=== PATIENT | female | born 1965 | race Caucasian/White ===

== ENCOUNTER → 2017-04-13 20:47 | Outpatient (CLI) | payer OTHER | END | disposition home or self-care (01) | LOC: D.LABREF 20:47 | DX: M25.80 Other specified joint disorders, unspecified joint (principal) ==

== ENCOUNTER → 2017-05-22 05:09 | Day surgery (SDC) | payer OTHER ==
[2017-05-18 10:34] LABS: HEMATOCRIT 40.8 % (36.0-48.0); HEMOGLOBIN 13.3 g/dL (12-16); MCH 29.9 pg (26.0-34.0); MCHC 32.6 g/dL (31.0-37.0); MCV 91.7 fL (80.0-100.0); RBC 4.45 10x6/uL (4.00-5.40); RDW 12.5 % (11.5-14.5); WBC 6.2 10x3/uL (4.8-10.8)
[~2017-05-22 05:09] MED LIST: HYDROCODONE-APA1 TAB PO
[2017-05-22 06:45] VITALS: BP 95/59; BMI 28.1
--- NOTE | 2017-05-22 10:45 | NUR ---
C/O NAUSEA, ZOFRAN 4MG SLOW IVP GIVEN. STATES WILL TAKE PAIN PILL WHEN NAUSEA IS GONE.
--- NOTE | 2017-05-22 12:04 | NUR ---
NORCO 10MG PO FOR C/O PAIN. IV REMOVED INTACT. DISCHARGE INSTRUCTIONS AND RX GIVEN, VOICED UNDERSTANDING.
--- NOTE | 2017-05-22 12:15 | NUR ---
DRESSED AND READY FOR DISCHARGE. HAS CRUTCHES IN CAR AND STATES KNOWS HOW TO USE THEM, HAS USED THEM BEFORE.
--- NOTE | 2017-05-22 14:44 | OP ---
PATIENT NAME: NARA BROWN MEDICAL RECORD: [id number] :63 LOCATION:[facility] ADMISSION DATE: SURGEON: LILLY MONTOYA MD DATE OF OPERATION: 05/22/2017 PREOPERATIVE DIAGNOSIS: Medial meniscus tear of the right knee. POSTOPERATIVE DIAGNOSIS: Medial meniscus tear of the right knee. PROCEDURE: Arthroscopic subtotal medial meniscectomy of the right knee. SURGEON: Lilly Montoya MD ANESTHESIA: General. INTRAOPERATIVE COMPLICATIONS: None. SUMMARY OF PATHOLOGIC FINDINGS: The patient had a very complex tear of the posterior horn of medial meniscus, horizontal cleavage plane with tears in each inferior and superior flap. 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 OPERATIVE SUMMARY IN DETAIL: After obtaining the appropriate preoperative orthopedic surgery consents as well as anesthetic consultation, evaluation and clearance, the patient was brought to the operative suite and placed in the operating table in supine position. After adequate general laryngeal mask airway was administered, tourniquet was placed about the proximal aspect of the right lower extremity. Right lower extremity was then prepped and draped in routine sterile fashion. The leg was elevated and exsanguinated, tourniquet inflated to 350 mmHg. Routine inferolateral portal was established followed by superior medial portal and inferior medial portal. Diagnostic arthroscopy revealed the above findings. While the patellofemoral compartment and the lateral compartment were pristine, the findings as described above were seen in the medial compartment. A combination of meniscotome and arthroscopic resector were utilized to do a near subtotal medial meniscectomy. All unstable portions of meniscus were removed. Having completed this, the knee was insufflated with 30 cc of 0.25% Marcaine and 80 mg of Depo-Medrol. Arthroscopy portals were closed in routine interrupted fashion using 4-0 Prolene. Sterile dressings were applied. Tourniquet was deflated. The patient was awakened, taken to the recovery room in stable condition. All final needle and sponge counts were correct. TRANSINT:[id number] Voice Confirmation ID: [id number] DOCUMENT ID: [id number] LILLY MONTOYA MD at 1444 CC: [id number] DICTATION DATE: 05/22/17 0954 APPLIANCE PAINTER AND REFINISHER: 05/22/17 1130 REG [facility] [address] [address]
== END | disposition home or self-care (01) ==
LOC: D.OPS 05:09
PROVIDERS: Anesthesiology
DX: S83.241A Other tear of medial meniscus, current injury, right knee, initial encounter (principal); F17.200 Nicotine dependence, unspecified, uncomplicated; J44.9 Chronic obstructive pulmonary disease, unspecified; Z01.812 Encounter for preprocedural laboratory examination

== ENCOUNTER 2018-10-15 11:32 | Inpatient (IN) | payer OTHER ==
[~2018-10-15] VITALS: Ht 175.3 cm; Wt 88.2 kg
[2018-10-24 10:23] LABS: APPEARANCE CLOUDY (CLEAR); BILIRUBIN NEGATIVE (NEGATIVE); COLOR YELLOW (YELLOW); GLUCOSE NEGATIVE (NEGATIVE); KETONE NEGATIVE (NEGATIVE); NITRITE POSITIVE (NEGATIVE); PROTEIN NEGATIVE (NEGATIVE); SPECIFIC GRAVITY 1.015 (1.005-1.020); UROBILINOGEN NORMAL (NORMAL); WHITE CELLS - URINE 0-5 /hpf (0-5)
[2018-10-24 10:24] LABS: BACTERIA MANY /hpf (NONE SEEN); EPITHELIAL CELLS 0-5 /hpf (0-5); MUCUS <1+ /lpf (NONE SEEN); RED CELLS - URINE 0-5 /hpf (0-5)
[2018-10-24 11:48] LABS: CALC OSMOLALITY 282 mosm/kg (275-300); CALCIUM 8.8 mg/dL (8.5-10.1); CARBON DIOXIDE 26.5 mmol/L (21.0-32.0); CHLORIDE - SERUM 106 mmol/L (98-107); CREATININE - SERUM 0.6 mg/dL (0.6-1.3); GLUCOSE 91 mg/dL (74-106); SODIUM 142 mmol/L (136-145); UREA NITROGEN 13 mg/dL (7-18); eGFR NON AFRICAN AMERICAN > 90 mL/min (90-120)
[2018-10-24 12:01] LABS: BASOPHILS 0.8 % (0-2); EOSINOPHILS 2.6 % (0-7); HEMATOCRIT 41.2 % (36.0-48.0); HEMOGLOBIN 13.5 g/dL (12-16); IMMATURE GRANULOCYTES 0.2 % (0-5); LYMPHOCYTES 36.9 % (15-50); MCHC 32.8 g/dL (31.0-37.0); MCV 88.4 fL (80.0-100.0); MEAN PLATELET VOLUME 10.3 fL (7.4-10.4); MONOCYTES 5.6 % (2-11); NEUTROPHILS 53.9 % (40-80); RBC 4.66 10x6/uL (4.00-5.40); RDW 12.9 % (11.5-14.5); WBC 6.6 10x3/uL (4.8-10.8)
[2018-10-24 12:04] LABS: APTT 29.2 SECONDS (22.8-39.4); PLATELET COUNT 246 10x3/uL (130-400); PROTIME 12.7 SECONDS (11.6-15.0)
[2018-10-30] VITALS (11 sets, daily range): BP systolic 100–127; BP diastolic 57–82; BMI 28.8
--- NOTE | 2018-10-30 16:58 | NUR ---
PATIENT NOTED TO HAVING A VERY SMALL, ABOUT SIZE OF PEN HEAD, SCAB AREA ON RIGHT KNEE, JUHI.
--- NOTE | 2018-10-30 17:05 | NUR ---
BLOCK ON RIGHT KNEE DONE OUT IN HOLDING AREA BY MIGUEL VIDES CRNA.
--- NOTE | 2018-10-30 19:31 | NUR ---
ANESTHESIA AT BEDSIDE. REBLOCKED RLE. BENJAMIN LAGUNAS CRNA PERFORMED BLOCK. WILL CONTINUE TO MONITOR.
[2018-10-31 01:33] VITALS: BP 95/60
[2018-10-31 04:34] VITALS: Ht 175.3 cm; Wt 88.2 kg
[2018-10-31 04:48] VITALS: BP 118/60
[2018-10-31 05:15] LABS: HEMOGLOBIN 12.5 g/dL (12-16); MCH 29.2 pg (26.0-34.0); MCHC 32.9 g/dL (31.0-37.0); MCV 88.8 fL (80.0-100.0); MEAN PLATELET VOLUME 10.1 fL (7.4-10.4); RBC 4.28 10x6/uL (4.00-5.40); RDW 12.6 % (11.5-14.5); WBC 10.6 10x3/uL (4.8-10.8)
--- NOTE | 2018-10-31 07:04 | OP ---
PATIENT NAME: NARA EISENBERG MEDICAL RECORD: [id number] :63 LOCATION:[id number] ADMISSION DATE:10/30/18 SURGEON: ALFRED KELLY DO DATE OF OPERATION: 10/30/2018 PROCEDURE PERFORMED: Right total knee arthroplasty. PREOPERATIVE DIAGNOSIS: Right knee osteoarthritis. POSTOPERATIVE DIAGNOSIS: Right knee osteoarthritis. INDICATIONS: Ms. Eisenberg is a 52-year-old female who has had a knee scope on the right knee before. She has had several injections in the past and has tried everything nonoperative for her right knee pain and she is ready to have something done. She was tired of dealing with the pain and it is affecting her activities of daily living. I informed her of the risks and benefits of the procedure including infection, bleeding, damage to nerve or vessels, need for further surgery, loosening of hardware, fracture, blood clots, and even . She is aware of those risks and signed the consent. SURGEON: Alfred Kelly DO DESCRIPTION OF PROCEDURE: The patient was taken to the operative suite after given a block by anesthesia in the preoperative area, given Ancef and gentamicin preoperatively. The timeout was performed, everyone was in agreeance with the correct side, site, patient, and procedure. The right knee had been prepped and draped in sterile fashion. An incision was marked out and then Ioban was placed over the knee. I was assisted by Trent Almendarez, advanced nurse practitioner. He assisted me with holding retractors and closing, this could not have been done without his assistance. Once the incision was marked out, a #10 blade scalpel was used to go down to the capsule. Any bleeding was coagulated with the Aquamantys at that time and throughout the procedure. A fresh 10 blade was then used through a medial parapatellar approach through the capsule and then the part of the fat pad was removed. The patella was everted and milled down. A 6.2 mm to fit the prosthesis. The knee was then flexed up and distal femur was entered with a drill into the femoral canal, the distal femur guide was then put on and the distal femur was cut. Once this femur was cut, the tibia was exposed and it was cut as well. The tibial cut was then removed and knee was brought in to an extension and a lamina associate professor of library science was used to spread the knee. The menisci were removed from medial and lateral. Bleeding was coagulated at that time with Aquamantys. The knee was then flexed up. The femur was measured to be 62.5 and 4-in-1 cutting block was then put on and an kumar wing was used to ensure that we would not notch and the 4-in-1 cutting block was used to cut the distal femur. The trial was then put into place and was poly put on a tibial tray, floated in and then ranged. The rotation was then marked. The patella was then drilled and once it was drilled the lug holes for the femur were drilled. The tibia was then exposed and sized to be 71. This was punched and drilled and then extra holes were put in the tibial plateau with proximal tibia to accommodate the cement. The cement was then mixed and put on the implant of the tibia and into the tibia, impacted into place. Excess cement was removed. The femur was then press fit on and impacted into place and the 12 poly was put in between the tibia and the femur, brought to extension and the patella was cemented on a 31 patella and held into place. Excess cement was removed from that. As the cement dried, the knee was thoroughly irrigated. We then sized up to a 16 poly. This fit well and had good stability in extension OPERATIVE REPORT [id number] NARA EISENBERG and flexion, both varus and valgus, and the anterior stabilized 16 E-Poly bearing was put in and locked into place with a locking mechanism. This was then ranged again and felt very solid. Inside the capsule was placed, Surgicel beads and vancomycin, tobramycin powder and then the knee capsule was closed with #2 Ethibond in fujcne-jf-eoema fashion. This was then irrigated and then more the tobramycin and vancomycin powder was put on top of the capsule and the knee was closed with a 2-0 Vicryl in an interrupted fashion. ZipLine was placed on the knee. Adaptic, 4 x 4s, ABD, Webril and Jason wrap and a CLYDE hose stocking was placed up to the knee. The patient was awakened and taken to recovery in stable condition. Blood loss was approximately 200 mL. COMPLICATIONS: None. TRANSINT:[id number] Voice Confirmation ID: [id number] DOCUMENT ID: [id number] ALFRED KELLY DO at 0704 CC: [id number] DICTATION DATE: 10/30/181813 MYCOLOGY TEACHER: 10/31/18 0137 ADM IN [facility] [address] [place] [address]
--- NOTE | 2018-10-31 08:00 | NUR ---
PATIENT ADMITTED FOLLOWING RIGHT TOTAL KNEE 10/30. CPM REMOVED, DRESSING TO RIGHT KNEE C/D/I, PATIENT ABLE FEEL TOUCH TO TOES AND WIGGLE TOES, CAP REFILL WNL, PAIN CONTROLLED AT THIS TIME. CL IN REACH
[2018-10-31 09:07] VITALS: BP 118/57
--- NOTE | 2018-10-31 11:01 | NUR ---
ADDITIONAL OXYCODONE GIVEN TO EQUAL 10 MG DUE TO PAIN INCREASED FOLLOWING FIRST 5MG
[2018-10-31 12:30] LABS: APPEARANCE HAZY (CLEAR); COLOR YELLOW (YELLOW)
[2018-10-31 12:32] LABS: AMORPHOUS SEDIMENT <1+ /lpf (NONE SEEN); BACTERIA MODERATE /hpf (NONE SEEN); BILIRUBIN NEGATIVE (NEGATIVE); EPITHELIAL CELLS RARE /hpf (0-5); GLUCOSE NEGATIVE (NEGATIVE); KETONE NEGATIVE (NEGATIVE); MUCUS <1+ /lpf (NONE SEEN); NITRITE POSITIVE (NEGATIVE); PROTEIN NEGATIVE (NEGATIVE); UROBILINOGEN NORMAL (NORMAL)
--- NOTE | 2018-10-31 13:46 | NUR ---
PT REQUESTED PAIN MEDICATION, ADMINISTERED PRN PAIN MEDICATION PER MAR
[2018-10-31 13:53] VITALS: BP 107/49
[2018-10-31 17:07] VITALS: BP 140/81
--- NOTE | 2018-10-31 17:42 | NUR ---
URINE TO BEDSIDE DAVILA DRAINAGE SYSTEM YELLOW WITH SEDIMENT WITH BLOOD TINGED URINE CLEARING
--- NOTE | 2018-10-31 20:20 | NUR ---
PT RESTING IN BED. ALERT AND ORIENTED. NO SIGNS OF DISTRESS. BREATHING EVEN AND UNLABORED. PT STATES NO PROBLEMS AT THIS TIME. IV SITE LT FA DRESSING CLEAN DRY AND INTACT. NO SIGNS OF INFECTION. SKIN CLEAN DRY AND ITNACT. BOWEL SOUNDS ACITVE. RT KNEE DRESSING CLEAN DRY AND INTACT. CLYDE HOSE, SCDS, AND PLEXI PULSE ON. WILL CONTINUE PLAN OF CARE. CALL LIGHT IN REACH. BED LOWERED AND LOCKED. BED RAILS UP X2.
[2018-10-31 21:47] VITALS: BP 110/58
--- NOTE | 2018-11-01 03:34 | NUR ---
I have reviewed this patient and I concur with the Shift Assessment completed by the Licensed Practical Nurse today this shift.
[2018-11-01 04:37] VITALS: BP 103/50
[2018-11-01 05:25] LABS: BASOPHILS 0.6 % (0-2); EOSINOPHILS 1.3 % (0-7); HEMATOCRIT 33.2 % (36.0-48.0); HEMOGLOBIN 10.6 g/dL (12-16); IMMATURE GRANULOCYTES 0.1 % (0-5); LYMPHOCYTES 39.6 % (15-50); MCH 28.5 pg (26.0-34.0); MCHC 31.9 g/dL (31.0-37.0); MCV 89.2 fL (80.0-100.0); MEAN PLATELET VOLUME 10.2 fL (7.4-10.4); MONOCYTES 7.2 % (2-11); NEUTROPHILS 51.2 % (40-80); PLATELET COUNT 186 10x3/uL (130-400); RBC 3.72 10x6/uL (4.00-5.40); RDW 12.9 % (11.5-14.5)
[2018-11-01 05:33] LABS: WBC 6.9 10x3/uL (4.8-10.8)
[2018-11-01 05:47] LABS: CALC OSMOLALITY 280 mosm/kg (275-300); CARBON DIOXIDE 27.5 mmol/L (21.0-32.0); CHLORIDE - SERUM 106 mmol/L (98-107); CREATININE - SERUM 0.7 mg/dL (0.6-1.3); GLUCOSE 106 mg/dL (74-106); POTASSIUM - SERUM 3.8 mmol/L (3.5-5.1); SODIUM 141 mmol/L (136-145); UREA NITROGEN 12 mg/dL (7-18); eGFR NON AFRICAN AMERICAN > 90 mL/min (90-120)
[2018-11-01] MEDS ORDERED: OXYCODONE HCL5 M1 PO (07:13)
[2018-11-01] MEDS ORDERED: ELIQUIS2.5 MG PO (07:13)
[2018-11-01] MEDS ORDERED: VISTARIL50 MG PO (07:14)
[2018-11-01] MEDS ORDERED: MACROBID100 MG PO (07:14)
--- NOTE | 2018-11-01 07:30 | NUR ---
PATIENT POST OP DAY 2 FOLLOWING TOTAL RIGHT KNEE REPLACEMENT. DRESSING C/D/I. CPM IN PLACE AT THIS TIME. DANNIE DENIES NEEDS, CL IN REACH
[2018-11-01 10:39] VITALS: BP 113/40
--- NOTE | 2018-11-01 12:44 | MORECARE ---
CASE MANAGEMENT DISCHARGE SUMMARY PATIENT: NARA WILSON UNIT: [id number] ADM DATE: 10/30/18 AGE: 52 : 63 SEX: F ROOM/BED: D.2214 AUTHOR: LIZBET,DOC PHYSICIAN: REFERRING PHYSICIAN: LASHAY KELLY DO DATE OF SERVICE: 11/01/18 Discharge Plan Patient Name: NARA WILSON Facility: [facility]:[place] : 1965 Planned Disposition: Home Anticipated Discharge Date: Discharge Date: Expected LOS: Initial Reviewer: [email or web address] Initial Review Date: 10/30/2018 Generated: 11/01/18 1:44 pm Comments DCP- Discharge Planning Updated by [email or web address]: Moni Liang on 11/01/18 11:[address] Patient Name: NARA WILSON Admission Status: Elective Accout number: [id number] Admission Date: 10-30-2018 : 1965 Admission Diagnosis: Attending: LASHAY KELLY Current LOS: 2 Anticipated DC Date: Planned Disposition: Home Primary Insurance: [employer] PPO Discharge Planning Comments: CM met with patient to assess discharge planning needs. Patient lives independently at home where she plans to return at discharge. She has 7 steps to get in her home. She has a walker, 3 in 1 BSC, CPM, Ice machine at her home that was set up by Dr Spaulding office. Her will be her milk driver home. She would like to do her OP PT at [facility]. CM will make that appointment for her prior to discharge.CM will continue to follow and assist with DC planning as needed Resaw Carriage Operator: Moni Liang DCPIA - Discharge Planning Initial Assessment Updated by [email or web address]: Moni Liang on 11/01/18 12:41 pm * Is the patient Alert and Oriented? Yes * How many steps to enter\exit or inside your home? * PCP YODIT * Pharmacy [facility] * Preadmission Environment Home with Family * ADLs Independent * Equipment Bedside Commode Rolling Walker * Other Equipment CPM ICE MACHINE * List name and contact numbers for known caregivers / representatives who currently or will assist patient after discharge: AMBER ([phone]) * Verbal permission to speak to the caregivers and representatives has been obtained from the patient. Yes * Community resources currently utilized None * Additional services required to return to the preadmission environment? Yes * Can the patient safely return to the preadmission environment? Yes * Has this patient been hospitalized within the prior 30 days at any hospital? No Patient Name: NARA WILSON Page [phone] at 1244 All edits/amendments must be made on the electronic document DICTATION DATE: 11/01/181243 ARCHITECTURAL SALES CONSULTANT: MATT 11/01/181243 RPT#: [id number] DC DATE: STATUS: ADM IN [facility] [address] [place] [address] END OF REPORT
[2018-11-01 13:03] VITALS: BP 113/63
--- NOTE | 2018-11-01 13:37 | MORECARE ---
CASE MANAGEMENT DISCHARGE SUMMARY PATIENT: NARA WILSON UNIT: [id number] ADM DATE: 10/30/18 AGE: 52 : 63 SEX: F ROOM/BED: D.2214 AUTHOR: LIZBET,GAVI PHYSICIAN: REFERRING PHYSICIAN: LASHAY KELLY DO DATE OF SERVICE: 11/01/18 Discharge Plan Patient Name: NARA WILSON Facility: [facility]:[place] : 1965 Planned Disposition: Home Anticipated Discharge Date: Discharge Date: Expected LOS: Initial Reviewer: [email or web address] Initial Review Date: 10/30/2018 Generated: 11/01/18 2:37 pm Comments DCP- Discharge Planning Updated by [email or web address]: Moni Liang on 11/01/18 12:[address] OP PT SET UP FOR [facility] FOR October @ 3:00PM, I SPOKE WITH MEI. A COPY OF THE ORDER WAS FAXED AND WILL BE GIVEN TO THE PATIENT IN HER DISCHARGE PACKET DCP- Discharge Planning Updated by [email or web address]: Moni Liang on 11/01/18 11:[address] Patient Name: NARA WILSON Admission Status: Elective Accout number: [id number] Admission Date: 10-30-2018 : 1965 Admission Diagnosis: Attending: LASHAY KELLY Current LOS: 2 Anticipated DC Date: Planned Disposition: Home Primary Insurance: [facility] PPO Discharge Planning Comments: CM met with patient to assess discharge planning needs. Patient lives independently at home where she plans to return at discharge. She has 7 steps to get in her home. She has a walker, 3 in 1 BSC, CPM, Ice machine at her home that was set up by Dr Spaulding office. Her will be her tanker driver home. She would like to do her OP PT at [facility]. CM will make that appointment for her prior to discharge.CM will continue to follow and assist with DC planning as needed Nuclear Powerplant Mechanic Helper: Moni Liang DCPIA - Discharge Planning Initial Assessment Updated by [email or web address]: Moni Liang on 11/01/18 12:41 pm * Is the patient Alert and Oriented? Yes * How many steps to enter\exit or inside your home? * PCP YODIT * Pharmacy [facility] * Preadmission Environment Home with Family * ADLs Independent * Equipment Bedside Commode Rolling Walker * Other Equipment CPM ICE MACHINE * List name and contact numbers for known caregivers / representatives who currently or will assist patient after discharge: AMBER ([phone]) * Verbal permission to speak to the caregivers and representatives has been obtained from the patient. Yes * Community resources currently utilized None * Additional services required to return to the preadmission environment? Yes * Can the patient safely return to the preadmission environment? Yes * Has this patient been hospitalized within the prior 30 days at any hospital? No External Providers External Provider: [facility] PT Next Contact Date: Service Request Date: Service Type: Resolution: Reviewer: Comments: Last DP export: 11/01/18 11:44 a Patient Name: NARA WILSON Page [phone] at 1337 All edits/amendments must be made on the electronic document DICTATION DATE: 11/01/18 1336 PRESCHOOL SPECIAL EDUCATION TEACHER: MATT 11/01/18 1336 RPT#: [id number] DC DATE: STATUS: ADM IN [facility] [address] [place] [address] END OF REPORT
--- NOTE | 2018-11-01 14:03 | MORECARE ---
CASE MANAGEMENT DISCHARGE SUMMARY PATIENT: NARA WILSON UNIT: [id number] ADM DATE: 10/30/18 AGE: 52 : 63 SEX: F ROOM/BED: D.2214 AUTHOR: LIZBET,DOC PHYSICIAN: REFERRING PHYSICIAN: LASHAY KELLY DO DATE OF SERVICE: 11/01/18 Discharge Plan Patient Name: NARA WILSON Facility: [facility]:[place] : 1965 Planned Disposition: Home Anticipated Discharge Date: Discharge Date: Expected LOS: Initial Reviewer: [email or web address] Initial Review Date: 10/30/2018 Generated: 11/01/18 3:03 pm Comments DCP- Discharge Planning Updated by [email or web address]: Moni Liang on 11/01/18 1:[address] PATIENT WILL BE DISCHARGING HOME TODAY FAMILY AT BEDSIDE AND IS AWARE DCP- Discharge Planning Updated by [email or web address]: Moni Liang on 11/01/18 12:[address] OP PT SET UP FOR [facility] FOR October @ 3:00PM, I SPOKE WITH MEI. A COPY OF THE ORDER WAS FAXED AND WILL BE GIVEN TO THE PATIENT IN HER DISCHARGE PACKET DCP- Discharge Planning Updated by [email or web address]: Moni Liang on 11/01/18 11:[address] Patient Name: NARA WILSON Admission Status: Elective Accout number: [id number] Admission Date: 10-30-2018 : 1965 Admission Diagnosis: Attending: LASHAY KELLY Current LOS: 2 Anticipated DC Date: Planned Disposition: Home Primary Insurance: [facility] PPO Discharge Planning Comments: CM met with patient to assess discharge planning needs. Patient lives independently at home where she plans to return at discharge. She has 7 steps to get in her home. She has a walker, 3 in 1 BSC, CPM, Ice machine at her home that was set up by Dr Spaulding office. Her will be her spotter driver home. She would like to do her OP PT at [facility]. CM will make that appointment for her prior to discharge.CM will continue to follow and assist with DC planning as needed Physician Assistant Certified: Moni Liang DCPIA - Discharge Planning Initial Assessment Updated by [email or web address]: Moni Liang on 11/01/18 12:41 pm * Is the patient Alert and Oriented? Yes * How many steps to enter\exit or inside your home? * PCP YODIT * Pharmacy [facility] * Preadmission Environment Home with Family * ADLs Independent * Equipment Bedside Commode Rolling Walker * Other Equipment CPM ICE MACHINE * List name and contact numbers for known caregivers / representatives who currently or will assist patient after discharge: AMBER ([phone]) * Verbal permission to speak to the caregivers and representatives has been obtained from the patient. Yes * Community resources currently utilized None * Additional services required to return to the preadmission environment? Yes * Can the patient safely return to the preadmission environment? Yes * Has this patient been hospitalized within the prior 30 days at any hospital? No Last DP export: 11/01/18 12:37 p Patient Name: NARA WILSON Page [phone] at 1403 All edits/amendments must be made on the electronic document DICTATION DATE: 11/01/181401 CONTRACT ADMINISTRATION COORDINATOR: MATT 11/01/181401 RPT#: [id number] DC DATE: STATUS: ADM IN [facility] [address] [place] [address] END OF REPORT
--- NOTE | 2018-11-01 14:25 | NUR ---
IV REMOVED FROM LEFT FA WITH CATH INTACT, NO REDNESS OR EDEMA
--- NOTE | 2018-11-01 15:47 | NUR ---
DISCHARGE INSTRUCTIONS GIVEN TO PATIENT INCLUDING ACTIVITY AND MEDICATIONS. PATIENT VOICED UNDERSTANDING. PATIENT TAKEN BY WHEELCHAIR TO PRIVATE CAR WITH VOLUNTEEER ASSIST
--- NOTE | 2018-11-02 10:36 | MORECARE ---
CASE MANAGEMENT DISCHARGE SUMMARY PATIENT: NARA WILSON UNIT: [id number] ADM DATE: 10/30/18 AGE: 52 : 63 SEX: F ROOM/BED: D.2214 AUTHOR: LIZBET,DOC PHYSICIAN: REFERRING PHYSICIAN: LASHAY KELLY DO DATE OF SERVICE: 11/02/18 Discharge Plan Patient Name: NARA WILSON Facility: [facility]:[place] : 1965 Planned Disposition: Home Anticipated Discharge Date: Discharge Date: 11/01/2018 Expected LOS: 0 Initial Reviewer: [email or web address] Initial Review Date: 10/30/2018 Generated: 11/02/18 11:35 am Comments DCP- Discharge Planning Updated by [email or web address]: Moni Liang on 11/01/18 1:[address] PATIENT WILL BE DISCHARGING HOME TODAY FAMILY AT BEDSIDE AND IS AWARE DCP- Discharge Planning Updated by [email or web address]: Moni Liang on 11/01/18 12:[address] OP PT SET UP FOR [facility] FOR October @ 3:00PM, I SPOKE WITH MEI. A COPY OF THE ORDER WAS FAXED AND WILL BE GIVEN TO THE PATIENT IN HER DISCHARGE PACKET DCP- Discharge Planning Updated by [email or web address]: Moni Liang on 11/01/18 11:[address] Patient Name: NARA WILSON Admission Status: Elective Accout number: [id number] Admission Date: 10-30-2018 : 1965 Admission Diagnosis: Attending: LASHAY KELLY Current LOS: 2 Anticipated DC Date: Planned Disposition: Home Primary Insurance: [facility] PPO Discharge Planning Comments: CM met with patient to assess discharge planning needs. Patient lives independently at home where she plans to return at discharge. She has 7 steps to get in her home. She has a walker, 3 in 1 BSC, CPM, Ice machine at her home that was set up by Dr Spaulding office. Her will be her combine driver home. She would like to do her OP PT at [facility]. CM will make that appointment for her prior to discharge.CM will continue to follow and assist with DC planning as needed Supervisor [place]: Moni Liang DCPIA - Discharge Planning Initial Assessment Updated by [email or web address]: Moni Liang on 11/01/18 12:41 pm * Is the patient Alert and Oriented? Yes * How many steps to enter\exit or inside your home? * PCP YODIT * [facility]acy [facility] * Preadmission Environment Home with Family * ADLs Independent * Equipment Bedside Commode Rolling Walker * Other Equipment CPM ICE MACHINE * List name and contact numbers for known caregivers / representatives who currently or will assist patient after discharge: AMBER ([phone]) * Verbal permission to speak to the caregivers and representatives has been obtained from the patient. Yes * Community resources currently utilized None * Additional services required to return to the preadmission environment? Yes * Can the patient safely return to the preadmission environment? Yes * Has this patient been hospitalized within the prior 30 days at any hospital? No Last DP export: 11/01/18 1:03 p Patient Name: NARA WILSON Page [phone] at 1036 All edits/amendments must be made on the electronic document DICTATION DATE: 11/02/18 1035 PARTS INSPECTOR: MATT 11/02/18 1035 RPT#: [id number] DC DATE:11/01/18 STATUS: DIS IN [facility] [address] [place] [address] END OF REPORT
== END 2018-11-01 15:54 | disposition home or self-care (01) | DRG 470 ==
LOC: D.SDCHOLD 10-30 10:00 → D.MS 10-30 10:15 → D.SDCHOLD 10-30 12:05 → D.MS 10-30 19:11
PROVIDERS: Internal Medicine Nephrology; ADMIT Orthopaedic Surgery; ATTEND Orthopaedic Surgery
PROC: 0SRC0JZ Replacement of Right Knee Joint with Synthetic Substitute, Open Approach (ICD-10-PCS; principal; 2018-10-30 13:00)
DX: M17.11 Unilateral primary osteoarthritis, right knee (principal); N39.0 Urinary tract infection, site not specified; F17.213 Nicotine dependence, cigarettes, with withdrawal

== ENCOUNTER → 2019-02-14 13:00 | Outpatient (CLI) | payer OTHER ==
[2018-10-31 04:34] VITALS: BMI 28.7
[~2019-02-14 13:00] MED LIST changes: +ELIQUIS2.5 MG PO; +MACROBID100 MG PO; +OXYCODONE HCL5 M1 PO; +VISTARIL50 MG PO
== END | disposition home or self-care (01) ==
LOC: D.MAMMO 13:00
PROVIDERS: ATTEND Family Medicine
DX: Z12.31 Encounter for screening mammogram for malignant neoplasm of breast (principal)

== ENCOUNTER 2019-04-20 14:15 | Emergency (ER) | payer OTHER ==
[~2019-04-20] VITALS: Ht 175.3 cm; Wt 95.5 kg
[2019-04-20 14:17] VITALS: Ht 175.3 cm; Wt 95.5 kg
[2019-04-20] MEDS ORDERED: VOLTAREN75 MG PO (15:21)
[2019-04-20 15:30] VITALS: BP 126/62
== END 2019-04-20 15:31 | disposition home or self-care (01) ==
LOC: D.ER 14:15
DX: S89.91XA Unspecified injury of right lower leg, initial encounter (principal); W07.XXXA Fall from chair, initial encounter; Y93.89 Activity, other specified; Y92.89 Other specified places as the place of occurrence of the external cause; M25.561 Pain in right knee